=== PATIENT | male | born 1955 | race Caucasian/White ===

== ENCOUNTER 2017-03-18 12:17 | Emergency (ER) | payer OTHER, BC ==
[~2017-03-18] VITALS: Ht 170.2 cm; Wt 93.4 kg
[~2017-03-18 12:17] MED LIST: ASPIRIN E.C.81 M2 PO; ASPIRIN81 M1 PO; AZOR 10/40 M1 TABLET PO; COLACE100 MG PO; CRESTOR10 MG PO; FLEXERIL10 MG PO; HYDROCODON-ACE1 EACH PO; HYTRIN5 MG PO; LABETALOL HCL200 MG PO; LOSARTAN POTASS50 MG PO; Motrin PO; NORMODYNE,TRAN200 MG PO; NORVASC10 MG PO; Norvasc PO; PERCOCET 5/31 TABLET PO; PREVACID15 MG PO; TOPAMAX25 MG PO; XANAX0.5 MG PO; ZESTRIL,PRINIVI20 MG PO; ZIAC 2.5/6.251 TAB PO; ZIAC 5/6.251 TABLET PO
[2017-03-18] MEDS ORDERED: FLEXERIL10 MG PO (14:29)
[2017-03-18 14:58] VITALS: BP 176/104
== END 2017-03-18 14:58 | disposition home or self-care (01) ==
LOC: EME 12:17
DX: S63.501A Unspecified sprain of right wrist, initial encounter (principal); S80.01XA Contusion of right knee, initial encounter; S40.012A Contusion of left shoulder, initial encounter; M54.2 Cervicalgia; V49.40XA Driver injured in collision with unspecified motor vehicles in traffic accident, initial encounter; I10 Essential (primary) hypertension; Z86.718 Personal history of other venous thrombosis and embolism
CPT/HCPCS: 70450; 71020; 72125; 73030; 73110; 73564; 99281; 99283